=== PATIENT | female | born 1995 | race Caucasian/White ===

== ENCOUNTER 2019-01-10 13:06 | Emergency (ER) | payer OTHER ==
[2019-01-10 13:18] VITALS: BP 130/91; PULSE 70; RESP 18; TEMP 98.3
[2019-01-10] MEDS ORDERED: metroNIDAZOLE 500 MG TAB PO STA (14:09)
--- NOTE | 2019-01-10 14:13 | ED ---
General Adult HPI - General Chief complaint: Skin/Abscess/Foreign Body Stated complaint: lump under buttocks Time Seen by Provider: 01/10/19 13:22 Source: patient Mode of arrival: ambulatory Limitations: no limitations - History of Present Illness Initial comments: Patient is a 23-year-old female presenting to emergency Department with a chief complaint of vaginal symptoms and a lesion on the buttock. Patient reports she developed a lesion about 2 months ago and appears to be cyclical in nature with increasing and decreasing in size. Patient reports the size of the lesion is not related to her menses. Patient reports it does appear to be slightly tender when the size is large but has no discharge. Patient denies any fevers or chills. Patient reports that she has signs of a vaginal candidiasis. Patient reports thick, clumpy white discharge from the vagina. Patient is also concern for possible bacterial vaginosis at the same time although there is no foul smell. Patient denies any fever or chills. Patient denies abdominal pain, nausea or vomiting. - Related Data Previous Rx's Medication Instructions Recorded Miconazole Nitrate 4%/2% [Monistat 1 each VAGINAL HS #1 kit 01/10/19 3 Vaginal] Allergies Allergy/AdvReac Type Severity Reaction Status Date / Time No Known Allergies Allergy Verified 01/10/19 13:18 Review of Systems ROS Statement: Those systems with pertinent positive or pertinent negative responses have been documented in the HPI. ROS Other: All systems not noted in ROS Statement are negative. Past Medical History Past Medical History: Asthma Additional Past Medical History / Comment(s): "mild asthma" History of Any Multi-Drug Resistant Organisms: None Reported Past Surgical History: No Surgical Hx Reported Past Psychological History: No Psychological Hx Reported Smoking Status: Current every day smoker Past Alcohol Use History: Rare Past Drug Use History: Marijuana General Exam Limitations: no limitations General appearance: alert, in no apparent distress Head exam: Present: atraumatic, normocephalic, normal inspection Eye exam: Present: normal appearance Pupils: Present: normal accommodation ENT exam: Present: normal exam, normal oropharynx, mucous membranes moist, TM's normal bilaterally, normal external ear exam Neck exam: Present: normal inspection, full ROM Respiratory exam: Present: normal lung sounds bilaterally Cardiovascular Exam: Present: regular rate, normal rhythm, normal heart sounds Extremities exam: Present: normal inspection, full ROM Back exam: Present: normal inspection, full ROM Neurological exam: Present: alert, oriented X3 Psychiatric exam: Present: normal affect, normal mood Skin exam: Present: warm, intact, normal color, rash (Rash appears very small, raised on the right buttock ) Course Vital Signs 01/10/19 13:14 Temperature 98.3 F Pulse Rate 70 Respiratory 18 Rate Blood Pressure 130/91 O2 Sat by Pulse 99 Oximetry Medical Decision Making - Medical Decision Making Patient is a 23-year-old female presenting to the emergency department with a chief complaint of the lesion on the buttock and vaginal symptoms. The vaginal symptoms and ongoing for a few days. Patient suspects that is vaginal candidiasis as she had previous episode of this. Patient does describe it as clumpy, white vaginal discharge with no foul odor. Patient was also concerned for BV. Patient declined pelvic examination. Patient will be treated for BV and Diflucan cream. Patient prefers cream vs oral diflucan. The small lesion ap peared with no signs of cellulitic changes or an abscess. This appears to be either an ingrown hair or possible hydradenitis supperativa. Patient advised to follow with primary care. Strict return parameters were thoroughly discussed the patient was understanding and agreeable. Case discussed physician. Disposition Clinical Impression: Vaginal candidiasis Disposition: HOME SELF-CARE Condition: Stable Instructions (If sedation given, give patient instructions): Yeast Infection (ED) Additional Instructions: Please take prescribed medication as directed. Please follow up with primary care. Please return to emergency department if symptoms worsen. Prescriptions: Miconazole Nitrate 4%/2% [Monistat 3 Vaginal] 1 each VAGINAL HS #1 kit Is patient prescribed a controlled substance at d/c from ED?: No Referrals: None,Stated [Primary Care Provider] - 1-2 days Time of Disposition: 14:13
== END 2019-01-10 14:35 | disposition home or self-care (01) ==
LOC: EC 13:06
DX: B37.3 Candidiasis of vulva and vagina (principal); L98.9 Disorder of the skin and subcutaneous tissue, unspecified; R21 Rash and other nonspecific skin eruption; F17.200 Nicotine dependence, unspecified, uncomplicated
CPT/HCPCS: 99282

== ENCOUNTER 2019-10-11 16:17 | Emergency (ER) | payer OTHER ==
[2019-10-11 16:26] VITALS: BP 117/77; PULSE 67; RESP 20; TEMP 98.5
--- NOTE | 2019-10-11 16:40 | ED ---
Recheck HPI - General Chief Complaint: Recheck/Abnormal Lab/Rx Stated Complaint: UTI Time Seen by Provider: 10/11/19 16:27 Source: patient Mode of arrival: ambulatory Limitations: no limitations - History of Present Illness Initial Comments: Patient is a 23-year-old female presenting to emergency Department with complaints of a genital herpes outbreak. Patient states she noticed one sore in her vaginal area 2 days ago. She states she knows she has a history of genital herpes and only has an outbreak once or twice a year. Patient has been with the same partner and is not concerned for any other STDs. She denies any dysuria. She states she is not currently . She denies any recent fever or chills. She has no further complaints at this time. Upon arrival to the ER, her vitals are stable. - Related Data Previous Rx's Medication Instructions Recorded Miconazole Nitrate 4%/2% [Monistat 1 each VAGINAL HS #1 kit 01/10/19 3 Vaginal] Acyclovir 400 mg PO TID 5 Days #15 tablet 10/11/19 Allergies Allergy/AdvReac Type Severity Reaction Status Date / Time No Known Allergies Allergy Verified 10/11/19 16:25 Review of Systems ROS Statement: Those systems with pertinent positive or pertinent negative responses have been documented in the HPI. ROS Other: All systems not noted in ROS Statement are negative. Past Medical History Past Medical History: Asthma Additional Past Medical History / Comment(s): "mild asthma", herpes History of Any Multi-Drug Resistant Organisms: None Reported Past Surgical History: No Surgical Hx Reported Past Psychological History: No Psychological Hx Reported Smoking Status: Current every day smoker Past Alcohol Use History: None Reported, Rare Past Drug Use History: None Reported, Marijuana General Exam - General Exam Comments Initial Comments: GENERAL: Well-appearing, well-nourished and in no acute distress. HEAD: Atraumatic, normocephalic. EYES: Pupils equal round and reactive to light, extraocular movements intact, sclera anicteric, conjunctiva are normal. ENT: TMs normal, nares patent, oropharynx clear without exudates. Moist mucous membranes. NECK: Normal range of motion, supple without lymphadenopathy or JVD. LUNGS: Breath sounds clear to auscultation bilaterally and equal. No wheezes rales or rhonchi. HEART: Regular rate and rhythm without murmurs, rubs or gallops. ABDOMEN: Soft, nontender, normoactive bowel sounds. No guarding, no rebound. No masses appreciated. : Deferred , declined EXTREMITIES: Normal range of motion, no pitting or edema. No clubbing or cyanosis. NEUROLOGICAL: Normal speech, normal gait. PSYCH: Normal mood, normal affect. SKIN: Warm, Dry, normal turgor, no rashes or lesions noted. Limitations: no limitations Course Vital Signs 10/11/19 16:23 Temperature 98.5 F Pulse Rate 67 Respiratory 20 Rate Blood Pressure 117/77 O2 Sat by Pulse 99 Oximetry Medical Decision Making - Medical Decision Making Patient is a 23-year-old female presenting for an outbreak of genital herpes. She states she gets about 1-2 breakouts a year and noticed a spot 2 days ago. She is not concerned for any other STDs. She states she is not currently . She exam however patient declined at this time. Patient will be given a prescription for acyclovir. She is in agreement with this plan of care. Return parameters were discussed with the patient she verbalized understanding. Disposition Clinical Impression: Recurrent genital herpes Disposition: HOME SELF-CARE Condition: Stable Instructions (If sedation given, give patient instructions): Genital Herpes Simplex (ED) Additional Instructions: Please return to the Emergency Department if symptoms worsen or any other concerns. Take medication as prescribed. Prescriptions: Acyclovir 400 mg PO TID 5 Days #15 tablet Is patient prescribed a controlled substance at d/c from ED?: No Referrals: None,Stated [Primary Care Provider] - 1-2 days
== END 2019-10-11 17:11 | disposition home or self-care (01) ==
LOC: EC 16:17
DX: A60.00 Herpesviral infection of urogenital system, unspecified (principal); F17.200 Nicotine dependence, unspecified, uncomplicated
CPT/HCPCS: 99283

== ENCOUNTER 2019-12-01 15:02 | Emergency (ER) | payer OTHER ==
[2019-12-01 15:43] VITALS: BP 122/66; PULSE 68; RESP 18; TEMP 98.9
[2019-12-01] MEDS ORDERED: ACET/COD 300 MG/30 MG STARTER PACK 6 TAB BTL PO STA (15:59)
[2019-12-01] MEDS ORDERED: AMOXIC-POT CLAV 875-125MG 1 EACH TAB PO STA (15:59)
--- NOTE | 2019-12-01 15:59 | ED ---
ENT HPI - General Chief complaint: Dental/Oral Stated complaint: dental pain Time Seen by Provider: 12/01/19 15:47 Source: patient Mode of arrival: ambulatory Limitations: no limitations - History of Present Illness Initial comments: Patient is 24-year-old female presenting to the emergency department with a chief complaint of dental pain. Patient states she's had a temporary crown put in on the tooth and is not able to afford full crown after having a root canal. Patient states now she's been having pain for the past 2-3 days. Patient reports occasionally she has food stuck in there and it causes her to have increased pain. Patient reports attempting to flaws with no improvement in symptoms. Patient denies any facial swelling, night sweats fevers or chills. She denies any discharge from her region or masses or lesions in the oral cavity. - Related Data Previous Rx's Medication Instructions Recorded Miconazole Nitrate 4%/2% [Monistat 1 each VAGINAL HS #1 kit 01/10/19 3 Vaginal] Acyclovir 400 mg PO TID 5 Days #15 tablet 10/11/19 Amoxicillin/Potassium Clav 1 tab PO Q12HR #20 tab 12/01/19 [Augmentin 875-125 Tablet] Allergies Allergy/AdvReac Type Severity Reaction Status Date / Time No Known Allergies Allergy Verified 12/01/19 15:43 Review of Systems ROS Statement: Those systems with pertinent positive or pertinent negative responses have been documented in the HPI. ROS Other: All systems not noted in ROS Statement are negative. Past Medical History Past Medical History: Asthma Additional Past Medical History / Comment(s): "mild asthma", herpes History of Any Multi-Drug Resistant Organisms: None Reported Past Surgical History: No Surgical Hx Reported Past Psychological History: No Psychological Hx Reported Smoking Status: Current every day smoker Past Alcohol Use History: None Reported Past Drug Use History: None Reported, Marijuana General Exam Limitations: no limitations General appearance: alert, in no apparent distress Head exam: Present: atraumatic, normocephalic, normal inspection Eye exam: Present: normal appearance, PERRL, EOMI Pupils: Present: normal accommodation ENT exam: Present: normal exam, normal oropharynx (Pain at tooth #4. No periapical abscesses. No gingival irritation), mucous membranes moist, TM's normal bilaterally, normal external ear exam. Absent: other (No facial swelling) Neck exam: Present: normal inspection, full ROM. Absent: tenderness, meningismus, lymphadenopathy Respiratory exam: Present: normal lung sounds bilaterally. Absent: respiratory distress, wheezes, rales Cardiovascular Exam: Present: regular rate, normal rhythm, normal heart sounds Extremities exam: Present: normal inspection, full ROM. Absent: tenderness Back exam: Present: normal inspection, full ROM. Absent: tenderness Neurological exam: Present: alert, oriented X3 Psychiatric exam: Present: normal affect, normal mood Skin exam: Present: warm, dry, intact, normal color Course Vital Signs 12/01/19 15:40 Temperature 98.9 F Pulse Rate 68 Respiratory 18 Rate Blood Pressure 122/66 O2 Sat by Pulse 98 Oximetry Medical Decision Making - Medical Decision Making Patient is a 24-year-old female presenting to the emergency department with a chief complaint of dental pain. Exam patient has deterioration in tooth #4 with no surrounding signs of inflammation. No signs of periapical abscess. Patient does not have pain support to afford permanent crown on her root canal. I gave the patient information [facility]. She was also given Toradol in the ED with improvement of symptoms. Patient was offered a dental block but she declined. Also gave the patient prescription for Augmentin. Return parameters were thoroughly discussed the patient was understanding and agreeable. Case discussed with physician. Disposition Clinical Impression: Pain, dental Disposition: HOME SELF-CARE Condition: Stable Instructions (If sedation given, give patient instructions): Toothache (ED) Additional Instructions: Take prescribed medication as directed. Alternate between Tylenol and Motrin for pain control. Follow-up with a dentist. Prescriptions: Amoxicillin/Potassium Clav [Augmentin 875-125 Tablet] 1 tab PO Q12HR #20 tab Is patient prescribed a controlled substance at d/c from ED?: No Referrals: None,Stated [Primary Care Provider] - 1-2 days Time of Disposition: 16:09
[2019-12-01] MEDS ORDERED: KETOROLAC 15 MG/ML 1 ML VIAL IM STA (16:06)
== END 2019-12-01 16:48 | disposition home or self-care (01) ==
LOC: EC 15:02
DX: K08.89 Other specified disorders of teeth and supporting structures (principal); F17.200 Nicotine dependence, unspecified, uncomplicated
CPT/HCPCS: 99282; 96372; J1885

== ENCOUNTER 2019-12-20 16:41 | Emergency (ER) | payer OTHER ==
[2019-12-20 16:53] VITALS: RESP 18
[2019-12-20] MEDS ORDERED: ALPRAZolam 0.5 MG TAB PO STA (16:53)
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
[2019-12-20 18:23] VITALS: BP 134/82; PULSE 88; TEMP 99
== END 2019-12-20 18:19 | disposition home or self-care (01) ==
LOC: EC 16:41
DX: S01.91XA Laceration without foreign body of unspecified part of head, initial encounter (principal); F17.200 Nicotine dependence, unspecified, uncomplicated; V43.52XA Car driver injured in collision with other type car in traffic accident, initial encounter; Y92.410 Unspecified street and highway as the place of occurrence of the external cause
CPT/HCPCS: 99284

== ENCOUNTER 2020-06-04 11:22 | Emergency (ER) | payer OTHER ==
[2020-06-04 11:36] VITALS: RESP 18
[2020-06-04] MEDS ORDERED: ACETAMINOPHEN TAB 500 MG TAB PO STA (11:52)
[2020-06-04] MEDS ORDERED: SODIUM CHLORIDE 0.9% 1,000 ML IV ONE (11:52)
--- NOTE | 2020-06-04 12:04 | ED ---
Female Urogenital HPI - General Chief complaint: Urogenital Stated complaint: Bladder pain Time Seen by Provider: 06/04/20 11:41 Source: patient, RN notes reviewed Mode of arrival: ambulatory Limitations: no limitations - History of Present Illness Initial comments: Patient is a 24-year-old female that presents to emergency department complaining of urinary tract infection type symptoms. Shethat she was on Macrobid prescribed by one of her other doctors to take after intercourse to prevent any new UTIs. She did note that she has chronic UTI symptoms such as urgency. She denied any dysuria. She did note that last sense with Dr. she found out she was , they stopped the Macrobid and started on Keflex. She noted she is on that for about a week without any relief in symptoms. She notes that her bladder feels heavy while laying down at night like she has to go the bathroom really bad she gets up and only minimal urine comes out. She did note that she is not sure how far along she is with her . She was requesting an ultrasound to figure out and approximate time frame. She did note that she recently got tested for STI's and is just waiting on results. Patient states that she is having moderate pain that is about a 5-6 out of 10 that is been constant for the last couple weeks. She declined wanting to get tested in the ER today. She denied any chest pain shortness of breath headache nausea vomiting diarrhea constipation fever fatigue chills dysuria bleeding. Last Menstrual Period: 04/29/20 - Related Data Previous Rx's Medication Instructions Recorded Miconazole Nitrate 4%/2% [Monistat 1 each VAGINAL HS #1 kit 01/10/19 3 Vaginal] Acyclovir 400 mg PO TID 5 Days #15 tablet 10/11/19 Amoxicillin/Potassium Clav 1 tab PO Q12HR #20 tab 12/01/19 [Augmentin 875-125 Tablet] ALPRAZolam [Xanax] 0.25 mg PO TID PRN 3 Days #9 tab 12/20/19 Pnv No.95/Ferrous Fum/Folic AC 1 each PO DAILY #30 tablet 06/04/20 [ Multivitamin Tablet] Allergies Allergy/AdvReac Type Severity Reaction Status Date / Time No Known Allergies Allergy Verified 12/20/19 16:53 Review of Systems ROS Statement: Those systems with pertinent positive or pertinent negative responses have been documented in the HPI. ROS Other: All systems not noted in ROS Statement are negative. Past Medical History Past Medical History: Asthma Additional Past Medical History / Comment(s): "mild asthma", herpes History of Any Multi-Drug Resistant Organisms: None Reported Past Surgical History: Orthopedic Surgery Past Psychological History: No Psychological Hx Reported Smoking Status: Former smoker, Vaper Past Alcohol Use History: None Reported Past Drug Use History: Marijuana General Exam Limitations: no limitations General appearance: alert, in no apparent distress Head exam: Present: atraumatic, normocephalic, normal inspection Eye exam: Present: normal appearance, PERRL, EOMI. Absent: scleral icterus, conjunctival injection, periorbital swelling ENT exam: Present: normal exam, mucous membranes moist Neck exam: Present: normal inspection. Absent: tenderness, meningismus, lymphadenopathy Respiratory exam: Present: normal lung sounds bilaterally. Absent: respiratory distress, wheezes, rales, rhonchi, stridor Cardiovascular Exam: Present: regular rate, normal rhythm, normal heart sounds. Absent: systolic murmur, diastolic murmur, rubs, gallop, clicks GI/Abdominal exam: Present: soft, tenderness (Minimal tenderness in the suprapubic area to moderate pressure palpation.), normal bowel sounds. Absent: distended, guarding, rebound, rigid Extremities exam: Present: normal inspection, full ROM, normal capillary refill. Absent: tenderness, pedal edema, joint swelling, calf tenderness Neurological exam: Present: alert, oriented X3, CN II-XII intact Psychiatric exam: Present: normal affect, normal mood Skin exam: Present: warm, dry, intact, normal color. Absent: rash Course Vital Signs 06/04/20 11:31 Temperature 98.9 F Pulse Rate 84 Respiratory 18 Rate Blood Pressure 127/85 O2 Sat by Pulse 99 Oximetry Medical Decision Making - Medical Decision Making 24-year-old female complaining of chronic UTI symptoms. Labs, transvaginal ultrasound, 1000 mg of Tylenol ordered. Patient declined STI testing in ER today due to recently being tested and waiting results. Labs unremarkable. Case discussed with Dr. Waite, decided patient could discharge home with follow-up to [facility] - Lab Data Result diagrams: 06/04/20 12:09 06/04/20 12:09 Lab Results 06/04/20 06/04/20 06/04/20 Range/Units 12:00 12:00 12:09 WBC 7.9 (3.8-10.6) k/uL RBC 4.57 (3.80-5.40) m/uL Hgb 14.0 (11.4-16.0) gm/dL Hct 40.0 (34.0-46.0) % MCV 87.4 (80.0-100.0) fL MCH 30.7 (25.0-35.0) pg MCHC 35.1 (31.0-37.0) g/dL RDW 12.3 (11.5-15.5) % Plt Count 334 (150-450) k/uL MPV 6.8 Neutrophils % 60 % Lymphocytes % 32 % Monocytes % 5 % Eosinophils % 1 % Basophils % 0 % Neutrophils # 4.8 (1.3-7.7) k/uL Lymphocytes # 2.6 (1.0-4.8) k/uL Monocytes # 0.4 (0-1.0) k/uL Eosinophils # 0.1 (0-0.7) k/uL Basophils # 0.0 (0-0.2) k/uL Sodium (137-145) mmol/L Potassium (3.5-5.1) mmol/L Chloride (98-107) mmol/L Carbon Dioxide (22-30) mmol/L Anion Gap mmol/L BUN (7-17) mg/dL Creatinine (0.52-1.04) mg/dL Est GFR (CKD-EPI)AfAm (>60 ml/min/1.73 sqM) Est GFR (CKD-EPI)NonAf (>60 ml/min/1.73 sqM) Glucose (74-99) mg/dL Calcium (8.4-10.2) mg/dL Total Bilirubin (0.2-1.3) mg/dL AST (14-36) U/L ALT (4-34) U/L Alkaline Phosphatase (38-126) U/L Total Protein (6.3-8.2) g/dL Albumin (3.5-5.0) g/dL Urine Color Yellow Urine Appearance Clear (Clear) Urine pH 6.0 (5.0-8.0) Ur Specific [place] 1.017 (1.001-1.035) Urine Protein Negative (Negative) Urine Glucose (UA) Negative (Negative) Urine Ketones Negative (Negative) Urine Blood Small H (Negative) Urine Nitrite Negative (Negative) Urine Bilirubin Negative (Negative) Urine Urobilinogen <2.0 (<2.0) mg/dL Ur Leukocyte Esterase Trace H (Negative) Urine RBC 1 (0-5) /hpf Urine WBC <1 (0-5) /hpf Ur Squamous Epith Cells 4 (0-4) /hpf Urine Bacteria Occasional H (None) /hpf Urine Mucus Rare H (None) /hpf Urine HCG, Qual Detected (Not Detectd) 06/04/20 Range/Units 12:09 WBC (3.8-10.6) k/uL RBC (3.80-5.40) m/uL Hgb (11.4-16.0) gm/dL Hct (34.0-46.0) % MCV (80.0-100.0) fL MCH (25.0-35.0) pg MCHC (31.0-37.0) g/dL RDW (11.5-15.5) % Plt Count (150-450) k/uL MPV Neutrophils % % Lymphocytes % % Monocytes % % Eosinophils % % Basophils % % Neutrophils # (1.3-7.7) k/uL Lymphocytes # (1.0-4.8) k/uL Monocytes # (0-1.0) k/uL Eosinophils # (0-0.7) k/uL Basophils # (0-0.2) k/uL Sodium 137 (137-145) mmol/L Potassium 4.3 (3.5-5.1) mmol/L Chloride 102 (98-107) mmol/L Carbon Dioxide 23 (22-30) mmol/L Anion Gap 12 mmol/L BUN 8 (7-17) mg/dL Creatinine 0.53 (0.52-1.04) mg/dL Est GFR (CKD-EPI)AfAm >90 (>60 ml/min/1.73 sqM) Est GFR (CKD-EPI)NonAf >90 (>60 ml/min/1.73 sqM) Glucose 82 (74-99) mg/dL Calcium 9.7 (8.4-10.2) mg/dL Total Bilirubin 0.4 (0.2-1.3) mg/dL AST 21 (14-36) U/L ALT 17 (4-34) U/L Alkaline Phosphatase 52 (38-126) U/L Total Protein 7.4 (6.3-8.2) g/dL Albumin 4.5 (3.5-5.0) g/dL Urine Color Urine Appearance (Clear) Urine pH (5.0-8.0) Ur Specific [place] (1.001-1.035) Urine Protein (Negative) Urine Glucose (UA) (Negative) Urine Ketones (Negative) Urine Blood (Negative) Urine Nitrite (Negative) Urine Bilirubin (Negative) Urine Urobilinogen (<2.0) mg/dL Ur Leukocyte Esterase (Negative) Urine RBC (0-5) /hpf Urine WBC (0-5) /hpf Ur Squamous Epith Cells (0-4) /hpf Urine Bacteria (None) /hpf Urine Mucus (None) /hpf Urine HCG, Qual (Not Detectd) - Radiology Data Radiology results: report reviewed, image reviewed Obstetrics ultrasound:Findings may represent an early gestation, follow-up is indicated. Disposition Clinical Impression: , Urinary tract infection Disposition: HOME SELF-CARE Additional Instructions: Please return to the Emergency Department if symptoms worsen or any other concerns. Follow-up with [facility] as soon as possible. Take vitamins daily. Continue Keflex as prescribed until complete. Go to scheduled urology appointment as planned. Prescriptions: Pnv No.95/Ferrous Fum/Folic AC [ Multivitamin Tablet] 1 each PO DAILY #30 tablet Is patient prescribed a controlled substance at d/c from ED?: No Referrals: Nonstaff,Physician [REFERRING] - 1-2 days Time of Disposition: 13:38
[2020-06-04 12:26] LABS: Basophils % (A) 0 %; Eosinophils # (A) 0.1 k/uL (0-0.7); Eosinophils % (A) 1 %; Lymphocytes # (A) 2.6 k/uL (1.0-4.8); Lymphocytes % (A) 32 %; MCH 30.7 pg (25.0-35.0); MCHC 35.1 g/dL (31.0-37.0); MCV 87.4 fL (80.0-100.0); Mean Platelet Volume 6.8; Monocytes # (A) 0.4 k/uL (0-1.0); Monocytes % (A) 5 %; Neutrophils # (A) 4.8 k/uL (1.3-7.7); Neutrophils % (A) 60 %; Platelet Count 334 k/uL (150-450); RBC 4.57 m/uL (3.80-5.40); RDW 12.3 % (11.5-15.5); WBC 7.9 k/uL (3.8-10.6)
[2020-06-04 12:44] LABS: Appearance,Urine Clear (Clear); Bacteria,Urine Occasional /hpf; Bilirubin,Urine Negative (Negative); Blood,Urine Small (Negative); Color,Urine Yellow; Glucose,Urine (UA) Negative (Negative); Ketones,Urine Negative (Negative); Leukocyte Esterase,Urine Trace (Negative); Mucus,Urine Rare /hpf; Nitrite,Urine Negative (Negative); Protein,Urine Negative (Negative); RBC,Urine 1 /hpf (0-5); Specific Gravity,Urine 1.017 (1.001-1.035); Squamous Epithelial Cell,Urine 4 /hpf (0-4); Urobilinogen,Urine <2.0 mg/dL (<2.0); WBC,Urine <1 /hpf (0-5)
[2020-06-04 12:47] LABS: ALT 17 U/L (4-34); AST 21 U/L (14-36); African American GFR (CKD) >90 (>60 ml/min/1.73 sqM); Albumin 4.5 g/dL (3.5-5.0); Alkaline Phosphatase 52 U/L (38-126); Anion Gap 12 mmol/L; Blood Urea Nitrogen 8 mg/dL (7-17); Calcium 9.7 mg/dL (8.4-10.2); Carbon Dioxide 23 mmol/L (22-30); Chloride 102 mmol/L (98-107); Glucose 82 mg/dL (74-99); Non-African American GFR(CKD) >90 (>60 ml/min/1.73 sqM); Potassium 4.3 mmol/L (3.5-5.1); Sodium 137 mmol/L (137-145); Total Bilirubin 0.4 mg/dL (0.2-1.3); Total Protein 7.4 g/dL (6.3-8.2)
--- NOTE | 2020-06-04 13:13 | US ---
EXAMINATION TYPE: Transabdominal DATE OF EXAM: 06/04/2020 12:49 PM COMPARISON: NONE CLINICAL HISTORY: pain. Bladder pain x 1 year. Frequent UTI's. Patient states she wants to know how far along she is. EXAM PERFORMED: Transvaginal (TV) and Transabdominal (TA) EXAM MEASUREMENTS: GESTATIONAL AGE / DATING Physician Established: Not yet established Dates by LMP: (5 weeks/1 days) EDC: 02/03/2021 Dates by First Scan: No previous this is first scan Dates by Current Scan for: ( 5 weeks/3 days) EDC: 02/01/2021 MATERNAL ANATOMY Uterus: 10.0 x 6.0 x 5.1 cm Right Ovary: 3.4 x 2.9 x 1.7 cm Left Ovary: 2.6 x 1.7 x 1.4 cm Post CDS / Adnexa: free fluid Presence of free fluid: cul de sac Presence of corpus luteal cyst: right ovarian lesion = 2.1 x 2.2 x 1.2 cm Presence of subchorionic bleed: Not seen GESTATION / SURVEY CRL: pole not seen MSD: 1.3 cm (5 weeks/3 days) Yolk Sac (normal less than 6mm): 2.6 mm IUP: GS and YS seen in endometrial canal Date of LMP: 04/29/2020, Beta HcG (if available): Not available at this time GS and yolk sac seen. pole not visualized. IMPRESSION: Findings may represent an early gestation, follow-up as indicated.
[2020-06-04 13:51] LABS: HCG,Quantitative Serum 15665.6 mIU/mL
[2020-06-04 13:57] VITALS: BP 128/86; PULSE 71; TEMP 97.9
== END 2020-06-04 13:57 | disposition home or self-care (01) ==
LOC: EC 11:22
DX: O23.40 Unspecified infection of urinary tract in pregnancy, unspecified trimester (principal); O99.519 Diseases of the respiratory system complicating pregnancy, unspecified trimester; J45.909 Unspecified asthma, uncomplicated; Z87.891 Personal history of nicotine dependence; Z3A.00 Weeks of gestation of pregnancy not specified
CPT/HCPCS: 36415; 76801; 76817; 80053; 81001; 81025; 84702; 85025; 96360; 99284

== ENCOUNTER → 2023-09-20 | Outpatient (CLI) | payer OTHER ==
[2023-09-20 15:24] LABS: Appearance,Urine Cloudy (Clear); Bilirubin,Urine Negative (Negative); Blood,Urine Negative (Negative); Color,Urine Yellow (Yellow); Ketones,Urine Negative (Negative); Nitrite,Urine Negative (Negative); PH, Urine 5.5; Specific Gravity,Urine 1.024 (1.001-1.030); Urobilinogen,Urine 0.2 E.U./DL
[2023-09-20 15:32] LABS: Bacteria,Urine None Seen (None Seen)
[2023-09-20 16:16] LABS: Basophils # (A) 0.02 X 10*3/uL (0.00-0.10); Basophils % (A) 0.4 %; Eosinophils # (A) 0.08 X 10*3/uL (0.04-0.35); Eosinophils % (A) 1.4 %; HCT 39.8 % (37.2-46.3); HGB 12.8 g/dL (12.0-15.0); Lymphocytes # (A) 2.09 X 10*3/uL (0.90-5.00); Lymphocytes % (A) 37.2 %; MCH 29.8 pg (27.0-32.0); MCHC 32.2 g/dL (32.0-37.0); MCV 92.6 FL (80.0-97.0); Mean Platelet Volume 10.2 FL (9.5-12.2); Monocytes # (A) 0.29 X 10*3/uL (0.20-1.00); Monocytes % (A) 5.2 %; NRBC Per 100 WBC 0 X 10*3/uL (0.00-0.01); Neutrophils # (A) 3.12 X 10*3/uL (1.80-7.70); Neutrophils % (A) 55.4 %; Platelet Count 251 X 10*3/uL (140-440); RDW 12.5 % (11.5-14.5); WBC 5.62 X 10*3/uL (4.50-10.00)
[2023-09-20 16:27] LABS: Hepatitis B Surface Antigen Nonreactive (Nonreactive)
[2023-09-20 16:40] LABS: ALT 15 U/L (8-44); AST 16 U/L (13-35); Albumin 4.5 g/dL (3.8-4.9); Albumin/Globulin Ratio 1.73 Ratio (1.60-3.17); Alkaline Phosphatase 47 U/L (41-126); Calcium 9.5 mg/dL (8.7-10.3); Carbon Dioxide 25.4 mmol/L (21.6-31.8); Chloride 101 mmol/L (96-109); Globulin 2.6 g/dL (1.6-3.3); Glucose 114 mg/dL (70-110); Potassium 4.5 mmol/L (3.5-5.5); Sodium 139 mmol/L (135-145); Total Bilirubin 0.4 mg/dL (0.3-1.2); Total Protein 7.1 g/dL (6.2-8.2)
== END | disposition home or self-care (01) ==
LOC: LABWHC1 10:35
PROVIDERS: ATTEND Nurse Practitioner
DX: F11.20 Opioid dependence, uncomplicated (principal)
CPT/HCPCS: 36415; 80053; 81001; 85025; 86704; 86780; 87340

== ENCOUNTER 2024-03-01 09:55 | Emergency (ER) | payer OTHER ==
[2024-03-01 10:09] VITALS: BP 124/79; PULSE 71; RESP 18; TEMP 97.7
--- NOTE | 2024-03-01 10:20 | ED ---
Skin/Abscess/FB HPI - General Chief complaint: Skin/Abscess/Foreign Body Stated complaint: Rash Time Seen by Provider: 03/01/24 10:10 Source: patient, RN notes reviewed Mode of arrival: ambulatory Limitations: no limitations - History of Present Illness Initial comments: This is a 28-year-old female no significant past medical history presented to the emergency department with her mother for chief complaint of a concern for allergic reaction. Patient states that yesterday evening she ate a handful of grapes and a straw. Approximately 15 minutes afterwards she started follow-up widespread urticaria that was pruritic in addition to wheezing, abdominal pain, and facial swelling. She reports that her boyfriend picked up Benadryl for which she took and approximately 1 hour after medication her symptoms started to alleviate. Patient said she woke up this morning her symptoms were most completely resolved aside from minor facial swelling. Currently she is denying shortness of breath, difficulty breathing, tongue swelling, lip swelling. - Related Data Previous Rx's Medication Instructions Recorded Miconazole Nitrate 4%/2% [Monistat 1 each VAGINAL HS #1 kit 01/10/19 3 Vaginal] Acyclovir 400 mg PO TID 5 Days #15 tablet 10/11/19 Amoxicillin/Potassium Clav 1 tab PO Q12HR #20 tab 12/01/19 [Augmentin 875-125 Tablet] ALPRAZolam [Xanax] 0.25 mg PO TID PRN 3 Days #9 tab 12/20/19 Pnv No.95/Ferrous Fum/Folic AC 1 each PO DAILY #30 tablet 06/04/20 [ Multivitamin Tablet] predniSONE 50 mg PO DAILY #5 tab 03/01/24 Allergies Allergy/AdvReac Type Severity Reaction Status Date / Time No Known Allergies Allergy Verified 03/01/24 10:04 Review of Systems ROS Statement: Those systems with pertinent positive or pertinent negative responses have been documented in the HPI. ROS Other: All systems not noted in ROS Statement are negative. Past Medical History Past Medical History: Asthma Additional Past Medical History / Comment(s): "mild asthma", herpes History of Any Multi-Drug Resistant Organisms: None Reported Past Surgical History: Orthopedic Surgery Past Psychological History: No Psychological Hx Reported Smoking Status: Former smoker, Vaper Past Alcohol Use History: None Reported Past Drug Use History: Marijuana General Exam Limitations: no limitations General appearance: alert, in no apparent distress Eye exam: Present: normal appearance, PERRL, EOMI, periorbital swelling (mild, bilateral). Absent: scleral icterus, conjunctival injection ENT exam: Present: normal exam, mucous membranes moist Neck exam: Present: normal inspection. Absent: tenderness, meningismus, lymphadenopathy Respiratory exam: Present: normal lung sounds bilaterally. Absent: respiratory distress, wheezes, rales, rhonchi, stridor Cardiovascular Exam: Present: regular rate, normal rhythm, normal heart sounds. Absent: systolic murmur, diastolic murmur, rubs, gallop, clicks GI/Abdominal exam: Present: soft, normal bowel sounds. Absent: distended, tenderness, guarding, rebound, rigid Extremities exam: Present: normal inspection, full ROM, normal capillary refill. Absent: tenderness, pedal edema, joint swelling, calf tenderness Back exam: Present: normal inspection Skin exam: Present: warm, dry, intact, normal color. Absent: rash Course Vital Signs 03/01/24 10:04 Temperature 97.7 F Pulse Rate 71 Respiratory 18 Rate Blood Pressure 124/79 O2 Sat by Pulse 100 Oximetry Medical Decision Making - Medical Decision Making Was pt. sent in by a medical professional or institution (, PA, FIELD REPRESENTATIVES DIRECTOR, urgent care, hospital, or residential...) When possible be specific @ -No Did you speak to anyone other than the patient for history (EMS, parent, family, police, friend...)? What history was obtained from this source @ -No Did you review nursing and triage notes (agree or disagree)? Why? @ -I reviewed and agree with nursing and triage notes Were old charts reviewed (outside hosp., previous admission, EMS record, old EKG, old radiological studies, urgent care reports/EKG's, residential records)? Report findings @ -No old charts were reviewed Differential Diagnosis (chest pain, altered mental status, abdominal pain women, abdominal pain men, vaginal bleeding, weakness, fever, dyspnea, syncope, headache, dizziness, GI bleed, back pain, seizure, CVA, palpatations, mental health, musculoskeletal)? @ -Anaphylaxis, contact dermatitis, allergic reaction, conjunctivitis, urticaria, this list is not all inclusive EKG interpreted by me (3pts min.). @ -None X-rays interpreted by me (1pt min.). @ -None done CT interpreted by me (1pt min.). @ -None done U/S interpreted by me (1pt. min.). @ -None done What testing was considered but not performed or refused? (CT, X-rays, U/S, labs)? Why? @ -None What meds were considered but not given or refused? Why? @ -None Did you discuss the management of the patient with other professionals (professionals i.e. DrEdwige, PA, FIELD REPRESENTATIVES DIRECTOR, lab, RT, psych nurse, social work case manager, radiagraph operator, teacher, property portfolio officer, rehabilitation caseworker)? Give summary @ -No Was smoking cessation discussed for >3mins.? @ -No Was critical care preformed (if so, how long)? @ -No Were there social determinants of health that impacted care today? How? (Homelessness, low income, unemployed, alcoholism, drug addiction, transportation, low edu. Level, literacy, decrease access to med. care, long-term, rehab)? @ -No Was there de-escalation of care discussed even if they declined (Discuss DNR or withdrawal of care, Hospice)? DNR status @ -No What co-morbidities impacted this encounter? (DM, HTN, Smoking, COPD, CAD, Cancer, CVA, ARF, Chemo, Hep., AIDS, mental health diagnosis, sleep apnea, morbid obesity)? @ -None Was patient admitted / discharged? Hospital course, mention meds given and route, prescriptions, significant lab abnormalities, going to OR and other pertinent info. @ -Discharge. 28-year-old female with concern for allergic reaction. On my evaluation the patient she does not complain no signs acute distress. Vitals are stable. Patient is not exhibiting signs of angioedema including tongue, lip swelling. Patient has extremely mild superior periorbital swelling. Patient is provided with dose of Solu-Medrol and sent a prescription for prednisone outpatient and instructed that to start this medication tomorrow. Recommend patient follows up outpatient with her primary care provider for appropriate allergy testing. Recommend that she take Benadryl as needed for intermittent symptoms. Discussed with Dr. Munoz Undiagnosed new problem with uncertain prognosis? @ -No Drug Therapy requiring intensive monitoring for toxicity (Heparin, Nitro, Insulin, Cardizem)? @ -No Were any procedures done? @ -No Diagnosis/symptom? @ -Allergic reaction Acute, or Chronic, or Acute on Chronic? @ -Acute Uncomplicated (without systemic symptoms) or Complicated (systemic symptoms)? @ -uncomplicated Side effects of treatment? @ -No Exacerbation, Progression, or Severe Exacerbation? @ -No Poses a threat to life or bodily function? How? (Chest pain, [place], [place], pneumonia, PE, COPD, DKA, ARF, appy, cholecystitis, CVA, Diverticulitis, Homicidal, Suicidal, threat to staff... and all critical care pts) @ -No Disposition Clinical Impression: Allergic reaction Disposition: HOME SELF-CARE Condition: Good Instructions (If sedation given, give patient instructions): Food Allergy (ED) Additional Instructions: Please return to the Emergency Department if symptoms worsen or any other concerns. Start to take prescribed prednisone tomorrow as directed. Take Benadryl as needed for intermittent symptoms. Recommend that you follow-up with your primary care provider for outpatient allergy testing. Prescriptions: predniSONE 50 mg PO DAILY #5 tab Is patient prescribed a controlled substance at d/c from ED?: No Referrals: Kaye Robles MD [Primary Care Provider] - 1-2 days Time of Disposition: 10:23
[2024-03-01] MEDS: methylPREDNISolone SOD SUCCI 125 MG/2 ML VIAL IM ONE (10:22)
== END 2024-03-01 10:37 | disposition home or self-care (01) ==
LOC: EC 09:55
DX: L50.9 Urticaria, unspecified (principal); F17.290 Nicotine dependence, other tobacco product, uncomplicated
CPT/HCPCS: 99283; J2919

== ENCOUNTER 2024-04-06 22:21 | Emergency (ER) | payer OTHER ==
[2024-04-06 22:26] VITALS: RESP 18; TEMP 98.9
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
[2024-04-07 00:06] LABS: Appearance,Urine Clear (Clear); Bilirubin,Urine Negative (Negative); Blood,Urine Negative (Negative); Color,Urine Yellow; Glucose,Urine (UA) Negative (Negative); Ketones,Urine 1+ (Negative); Leukocyte Esterase,Urine Small (Negative); Mucus,Urine Occasional /hpf; Nitrite,Urine Negative (Negative); PH, Urine 6.5 (5.0-8.0); Protein,Urine 1+ (Negative); RBC,Urine 2 /hpf (0-5); Specific Gravity,Urine 1.022 (1.001-1.035); Squamous Epithelial Cell,Urine 4 /hpf (0-4); WBC,Urine 5 /hpf (0-5)
[2024-04-07 02:28] VITALS: BP 124/81; PULSE 63
--- NOTE | 2024-04-07 02:46 | CT ---
EXAM: CT Head Without Intravenous Contrast CLINICAL HISTORY: ITS.REASON CT Reason: pain TECHNIQUE: Axial computed tomography images of the head/brain without intravenous contrast. CTDI is 45.2 mGy and DLP is 1349 mGy-cm. This CT exam was performed using one or more of the following dose reduction techniques: automated exposure control, adjustment of the mA and/or kV according to patient size, and/or use of iterative reconstruction technique. COMPARISON: No relevant prior studies available. FINDINGS: Brain: Unremarkable. No hemorrhage. No significant white matter disease. No edema. Ventricles: Unremarkable. No ventriculomegaly. Bones/joints: Unremarkable. No acute fracture. Soft tissues: Unremarkable. Sinuses: Polyp or mucus retention cyst right maxillary sinus. Mastoid air cells: Unremarkable as visualized. No mastoid effusion. IMPRESSION: No acute findings in the head/brain.
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
== END 2024-04-07 03:00 | disposition home or self-care (01) ==
LOC: EC 22:21
DX: S09.90XA Unspecified injury of head, initial encounter (principal); F17.290 Nicotine dependence, other tobacco product, uncomplicated; Y04.0XXA Assault by unarmed brawl or fight, initial encounter
CPT/HCPCS: 70450; 70486; 81001; 81025; 99284